=== PATIENT | female | born 1990 | race Caucasian/White ===

== ENCOUNTER → 2018-06-20 | Outpatient (CLI) | payer OTHER ==
[~2018-06-20] MED LIST: CRUTCH4 USE; Crutch1 EACH MISC; IBUP800 PO; Naprosyn500 MG PO; Norco 5-325 Ta1 EACH PO; Percocet 5-3251 EACH PO; Ultram50 MG PO; Zofran Odt4 MG SL
[2018-06-24 21:08] LABS: CHLAMYDIA TRACHOMATIS, NAA Negative (Negative); NEISSERIA GONORRHOEAE, NAA Negative (Negative)
== END ==
LOC: LAB SHORT 14:18 → LAB UCHC 14:18
PROVIDERS: Registered Nurse Community Health
DX: N76.0 Acute vaginitis (principal); N88.8 Other specified noninflammatory disorders of cervix uteri; N93.0 Postcoital and contact bleeding; N93.8 Other specified abnormal uterine and vaginal bleeding; Z30.49 Encounter for surveillance of other contraceptives
CPT/HCPCS: 87070; 87205; 87491; 87591

== ENCOUNTER → 2018-11-25 | Outpatient (CLI) | payer OTHER ==
[~2018-11-25] MED LIST changes: +CEFD300 PO; +PRED20 PO
== END | disposition home or self-care (01) ==
LOC: LAB EV 14:45 → LAB SHORT 14:45
DX: J03.90 Acute tonsillitis, unspecified (principal)
CPT/HCPCS: 87070

== ENCOUNTER → 2021-06-17 | Outpatient (CLI) | payer OTHER ==
[2021-06-17 16:57] LABS: Appearance, Urine Cloudy (Clear); Bilirubin, Urine Neg (Neg); Blood, Urine 3+ (Neg); Color, Urine Yellow (P-Yellow); Glucose Qualitative, Urine Neg (Neg); Ketones, Urine 2+ (Neg); Leukocyte Esterase, Urine 3+ (Neg); Nitrite, Urine Neg (Neg); Protein, Urine 2+ (Neg); Specific Gravity, Urine 1.025 (1.003-1.022); Urobilinogen, Urine NORM (Normal)
[2021-06-17 17:55] LABS: Amorphous Mod (0-Heavy); Bacteria Many /hpf; Mucus Light (0-Heavy); Squamous Epithelial Cells Mod /hpf (Few)
[2021-06-18 08:10] LABS: HBSAG SCREEN Negative (Negative)
[2021-06-18 09:10] LABS: HIV SCREEN 4TH GENERATION WRFX Non Reactive (Non Reactive)
== END ==
LOC: LAB 15:08 → LAB SHORT 15:08
PROVIDERS: Registered Nurse Community Health
DX: Z34.90 Encounter for supervision of normal pregnancy, unspecified, unspecified trimester (principal)
CPT/HCPCS: 80055; 81001; 84443; 87086; 87389

== ENCOUNTER → 2021-06-29 | Outpatient (CLI) | payer OTHER ==
[2021-07-01 15:10] LABS: HPV 16 Negative (Negative); HPV 18 Negative (Negative); HPV OTHER HR TYPES Negative (Negative)
== END ==
LOC: LAB 16:45 → LAB SHORT 16:45
PROVIDERS: Registered Nurse Community Health
DX: Z12.4 Encounter for screening for malignant neoplasm of cervix (principal); Z88.5 Allergy status to narcotic agent; Z91.040 Latex allergy status
CPT/HCPCS: 87624; G0123

== ENCOUNTER → 2021-06-29 | Outpatient (CLI) | payer OTHER | LOC: LAB 19:02 → LAB SHORT 19:02 | DX: Z34.90 Encounter for supervision of normal pregnancy, unspecified, unspecified trimester (principal) | CPT/HCPCS: 84702 ==

== ENCOUNTER → 2021-07-27 | Outpatient (CLI) | payer OTHER ==
[2021-07-29 05:09] LABS: CHLAMYDIA TRACHOMATIS, NAA Negative (Negative)
== END ==
LOC: LAB 11:49 → LAB SHORT 11:49
PROVIDERS: Registered Nurse Community Health
DX: Z34.90 Encounter for supervision of normal pregnancy, unspecified, unspecified trimester (principal)
CPT/HCPCS: 87491; 87591

== ENCOUNTER → 2021-10-19 | Outpatient (CLI) | payer OTHER ==
[2021-10-19 18:27] LABS: Hematocrit 37.6 % (33.0-51.0); Hemoglobin 12.8 g/dL (11.5-16.0)
== END ==
LOC: LAB SHORT 15:20
PROVIDERS: Registered Nurse Community Health
DX: Z34.90 Encounter for supervision of normal pregnancy, unspecified, unspecified trimester (principal)
CPT/HCPCS: 82950; 85014; 85018

== ENCOUNTER → 2021-12-21 | Outpatient (CLI) | payer OTHER ==
[~2021-12-21] MED LIST changes: +ACET500 PO; +AMOCLA875 PO; +DOCU100 PO; +IBU800 MG PO; +TOPI25 PO
== END ==
LOC: LAB SHORT 14:40
DX: Z34.93 Encounter for supervision of normal pregnancy, unspecified, third trimester (principal)
CPT/HCPCS: 87081; 87150

== ENCOUNTER 2022-01-15 15:48 | Inpatient (IN) | payer OTHER ==
[~2022-01-15] VITALS: Ht 175.3 cm; Wt 135.0 kg
[~2022-01-15 15:48] MED LIST changes: -ACET500 PO; -AMOCLA875 PO; -DOCU100 PO; -IBU800 MG PO; -TOPI25 PO
[2022-01-15] MEDS ORDERED: ACET500 PO (16:33)
[2022-01-15 17:00] LABS: BASOPHILS ABSOLUTE AUTO 0.06 K/mm3 (0.00-0.23); BASOPHILS PERCENT AUTO 0 % (0-2); EOSINOPHILS ABSOLUTE AUTO 0.11 K/mm3 (0.00-0.68); EOSINOPHILS PERCENT AUTO 1 % (0-6); Hematocrit 38.5 % (33.0-51.0); Hemoglobin 12.6 g/dL (11.5-16.0); IMMATURE GRAN ABSOLUTE AUTO 0.16 K/mm3 (0.00-0.10); IMMATURE GRAN PERCENT AUTO 1 % (0-1); LYMPHOCYTES ABSOLUTE AUTO 1.96 K/mm3 (0.84-5.20); LYMPHOCYTES PERCENT AUTO 11 % (21-46); MONOCYTES ABSOLUTE AUTO 1.26 K/mm3 (0.16-1.47); MONOCYTES PERCENT AUTO 7 % (4-13); Mean Corpuscular HGB Conc 32.7 g/dL (31.5-36.5); Mean Corpuscular Volume 92 fL (80-100); Mean Platelet Volume 9.6 fL (9.1-12.4); NEUTROPHILS ABSOLUTE AUTO 13.63 K/mm3 (1.96-9.15); NEUTROPHILS PERCENT AUTO 80 % (41-73); Platelet Count 272 K/mm3 (150-400); RDW Coefficient Variation 13.3 % (11.7-14.2); RDW Standard Deviation 44.1 fL (35.1-46.3); White Blood Cell Count 17.18 K/mm3 (4.00-11.30)
[2022-01-15 17:38] LABS: PCO2 Cord - Venous 49.3 mmHg (40-50); PO2 Cord - Venous 41.9 mmHg (28-32); pH Umbilical Cord - Venous 7.36 (7.26-7.35)
--- NOTE | 2022-01-15 17:48 | NUR ---
01/15/22 1748 Og Pisano INITIAL COUNT DONE BY GB AND SRC. EMERGENT WITH GEN ANESTHESIA. COUNT REVIEWED BY RAPHAEL WITH SRC. 1721 DELIVERY OF VIABLE MALE IN BREECH POSITION. CORD SEGMENT AND CORD BLOOD GIVEN TO RT AND FBP STAFF
[2022-01-15 20:31] LABS: BASOPHILS ABSOLUTE AUTO 0.09 K/mm3 (0.00-0.23); BASOPHILS PERCENT AUTO 0 % (0-2); EOSINOPHILS ABSOLUTE AUTO 0.03 K/mm3 (0.00-0.68); EOSINOPHILS PERCENT AUTO 0 % (0-6); Hematocrit 40.5 % (33.0-51.0); Hemoglobin 13.2 g/dL (11.5-16.0); IMMATURE GRAN ABSOLUTE AUTO 0.43 K/mm3 (0.00-0.10); IMMATURE GRAN PERCENT AUTO 1 % (0-1); LYMPHOCYTES ABSOLUTE AUTO 1.53 K/mm3 (0.84-5.20); LYMPHOCYTES PERCENT AUTO 5 % (21-46); MONOCYTES ABSOLUTE AUTO 1.27 K/mm3 (0.16-1.47); MONOCYTES PERCENT AUTO 4 % (4-13); Mean Corpuscular HGB 30.8 pg (26.0-34.0); Mean Corpuscular HGB Conc 32.6 g/dL (31.5-36.5); Mean Corpuscular Volume 94 fL (80-100); NEUTROPHILS ABSOLUTE AUTO 27.92 K/mm3 (1.96-9.15); NEUTROPHILS PERCENT AUTO 89 % (41-73); RDW Coefficient Variation 13.4 % (11.7-14.2); Red Blood Cell Count 4.29 M/mm3 (3.80-5.20); White Blood Cell Count 31.27 K/mm3 (4.00-11.30)
[2022-01-15 20:35] LABS: Mean Platelet Volume 9.9 fL (9.1-12.4); Platelet Count 267 K/mm3 (150-400)
[2022-01-16 04:09] LABS: BASOPHILS ABSOLUTE AUTO 0.06 K/mm3 (0.00-0.23); BASOPHILS PERCENT AUTO 0 % (0-2); EOSINOPHILS ABSOLUTE AUTO 0.02 K/mm3 (0.00-0.68); EOSINOPHILS PERCENT AUTO 0 % (0-6); Hematocrit 31.5 % (33.0-51.0); Hemoglobin 10.8 g/dL (11.5-16.0); IMMATURE GRAN ABSOLUTE AUTO 0.23 K/mm3 (0.00-0.10); IMMATURE GRAN PERCENT AUTO 1 % (0-1); LYMPHOCYTES ABSOLUTE AUTO 2.02 K/mm3 (0.84-5.20); LYMPHOCYTES PERCENT AUTO 9 % (21-46); MONOCYTES ABSOLUTE AUTO 1.29 K/mm3 (0.16-1.47); MONOCYTES PERCENT AUTO 6 % (4-13); Mean Corpuscular HGB 31.3 pg (26.0-34.0); Mean Corpuscular HGB Conc 34.3 g/dL (31.5-36.5); Mean Corpuscular Volume 91 fL (80-100); Mean Platelet Volume 9.7 fL (9.1-12.4); NEUTROPHILS ABSOLUTE AUTO 18.69 K/mm3 (1.96-9.15); NEUTROPHILS PERCENT AUTO 84 % (41-73); Platelet Count 262 K/mm3 (150-400); RDW Coefficient Variation 13.3 % (11.7-14.2); RDW Standard Deviation 43.7 fL (35.1-46.3); Red Blood Cell Count 3.45 M/mm3 (3.80-5.20); White Blood Cell Count 22.31 K/mm3 (4.00-11.30)
--- NOTE | 2022-01-16 04:40 | NUR ---
DR RIVERO CONTACTED TO REPORT PT'S HR IN THE 120'S, LABS, BLEEDING, FUNDAL CHECKS, UO DISCUSSED. WILL GIVE 500ML BOLUS.
[2022-01-16 08:55] LABS: BASOPHILS ABSOLUTE AUTO 0.05 K/mm3 (0.00-0.23); BASOPHILS PERCENT AUTO 0 % (0-2); EOSINOPHILS ABSOLUTE AUTO 0.03 K/mm3 (0.00-0.68); EOSINOPHILS PERCENT AUTO 0 % (0-6); Hematocrit 30.2 % (33.0-51.0); Hemoglobin 10.2 g/dL (11.5-16.0); IMMATURE GRAN ABSOLUTE AUTO 0.22 K/mm3 (0.00-0.10); IMMATURE GRAN PERCENT AUTO 1 % (0-1); LYMPHOCYTES ABSOLUTE AUTO 2.04 K/mm3 (0.84-5.20); LYMPHOCYTES PERCENT AUTO 11 % (21-46); MONOCYTES PERCENT AUTO 7 % (4-13); Mean Corpuscular HGB Conc 33.8 g/dL (31.5-36.5); Mean Corpuscular Volume 92 fL (80-100); Mean Platelet Volume 9.5 fL (9.1-12.4); NEUTROPHILS ABSOLUTE AUTO 14.72 K/mm3 (1.96-9.15); NEUTROPHILS PERCENT AUTO 80 % (41-73); Platelet Count 241 K/mm3 (150-400); RDW Coefficient Variation 13.3 % (11.7-14.2); RDW Standard Deviation 44.7 fL (35.1-46.3); Red Blood Cell Count 3.29 M/mm3 (3.80-5.20); White Blood Cell Count 18.36 K/mm3 (4.00-11.30)
--- NOTE | 2022-01-16 12:01 | NUR ---
lungs clear using incentive spirometer pericare done
--- NOTE | 2022-01-16 12:22 | NUR ---
[employer] ADVIS[employer] SERVICES ASSOCIATE D/C TOTAL 4.2 GIVEN THIS SHIFT VERIFIED WITH Anson SOUSA RN, PERCOCET GIVEN
--- NOTE | 2022-01-16 14:35 | NUR ---
CARHART HERE TO SEE PATIENT, BIOX WNL AND HEART RATE MANUAL 100 BPM
--- NOTE | 2022-01-16 17:24 | NUR ---
C/O INCREASE PAIN, LUNGS CLEAR, BIOX 94-95% INCISION SITE CLEAR, ORAL TEMP 99.3 WITH HR IN 120s PAIN MEDS GIVEN, SANDRA CARE DONE
[2022-01-16 19:56] LABS: BASOPHILS ABSOLUTE AUTO 0.03 K/mm3 (0.00-0.23); BASOPHILS PERCENT AUTO 0 % (0-2); EOSINOPHILS ABSOLUTE AUTO 0.03 K/mm3 (0.00-0.68); EOSINOPHILS PERCENT AUTO 0 % (0-6); Hematocrit 29.2 % (33.0-51.0); Hemoglobin 9.8 g/dL (11.5-16.0); IMMATURE GRAN PERCENT AUTO 1 % (0-1); LYMPHOCYTES ABSOLUTE AUTO 1.49 K/mm3 (0.84-5.20); LYMPHOCYTES PERCENT AUTO 8 % (21-46); MONOCYTES PERCENT AUTO 7 % (4-13); Mean Corpuscular HGB 31.2 pg (26.0-34.0); Mean Corpuscular HGB Conc 33.6 g/dL (31.5-36.5); Mean Corpuscular Volume 93 fL (80-100); Mean Platelet Volume 9.5 fL (9.1-12.4); NEUTROPHILS ABSOLUTE AUTO 16.14 K/mm3 (1.96-9.15); NEUTROPHILS PERCENT AUTO 84 % (41-73); Platelet Count 251 K/mm3 (150-400); RDW Coefficient Variation 13.5 % (11.7-14.2); RDW Standard Deviation 45.6 fL (35.1-46.3); Red Blood Cell Count 3.14 M/mm3 (3.80-5.20); White Blood Cell Count 19.19 K/mm3 (4.00-11.30)
[2022-01-16 20:14] LABS: Alanine Aminotransfer (ALT/SGP 16 U/L (12-78); Albumin/Globulin Ratio 0.5 (0.8-1.8); Alk Phos 87 U/L (50-136); Anion Gap 6 mmol/L (6-16); Aspartate Aminotrans (AST/SGOT 34 U/L (12-37); Bilirubin, Total 0.3 mg/dL (0.1-1.0); Blood Urea Nitrogen 5 mg/dL (8-24); Bun/Creatinine Ratio 8.9 (12.0-20.0); CO2, Blood 27 mmol/L (21-32); Calcium, Blood 8.9 mg/dL (8.5-10.1); Chloride, Blood 105 mmol/L (98-108); Creatinine, Blood 0.56 mg/dL (0.40-1.00); Glomerular Filtration Rate >60 (60-); Glucose, Blood 150 mg/dL (70-99); Potassium, Blood 3.8 mmol/L (3.5-5.5); Sodium, Blood 138 mmol/L (136-145)
[2022-01-16 20:32] LABS: C-Reactive Protein, High Sens. >190.000 mg/L (0.000-3.000)
[2022-01-17 04:59] LABS: BASOPHILS ABSOLUTE AUTO 0.03 K/mm3 (0.00-0.23); BASOPHILS PERCENT AUTO 0 % (0-2); EOSINOPHILS ABSOLUTE AUTO 0.08 K/mm3 (0.00-0.68); EOSINOPHILS PERCENT AUTO 1 % (0-6); Hematocrit 26.5 % (33.0-51.0); Hemoglobin 8.8 g/dL (11.5-16.0); IMMATURE GRAN ABSOLUTE AUTO 0.19 K/mm3 (0.00-0.10); IMMATURE GRAN PERCENT AUTO 1 % (0-1); LYMPHOCYTES ABSOLUTE AUTO 1.68 K/mm3 (0.84-5.20); LYMPHOCYTES PERCENT AUTO 11 % (21-46); MONOCYTES ABSOLUTE AUTO 1.14 K/mm3 (0.16-1.47); MONOCYTES PERCENT AUTO 7 % (4-13); Mean Corpuscular HGB Conc 33.2 g/dL (31.5-36.5); Mean Corpuscular Volume 93 fL (80-100); Mean Platelet Volume 9.2 fL (9.1-12.4); NEUTROPHILS ABSOLUTE AUTO 12.38 K/mm3 (1.96-9.15); NEUTROPHILS PERCENT AUTO 80 % (41-73); Platelet Count 223 K/mm3 (150-400); RDW Coefficient Variation 13.6 % (11.7-14.2); RDW Standard Deviation 46.5 fL (35.1-46.3); Red Blood Cell Count 2.84 M/mm3 (3.80-5.20)
[2022-01-17 05:47] LABS: Alanine Aminotransfer (ALT/SGP 14 U/L (12-78); Albumin, Blood 1.7 g/dL (3.4-5.0); Albumin/Globulin Ratio 0.4 (0.8-1.8); Alk Phos 80 U/L (50-136); Anion Gap 7 mmol/L (6-16); Aspartate Aminotrans (AST/SGOT 27 U/L (12-37); Bilirubin, Total 0.2 mg/dL (0.1-1.0); Blood Urea Nitrogen 7 mg/dL (8-24); Bun/Creatinine Ratio 10.1 (12.0-20.0); CO2, Blood 28 mmol/L (21-32); Calcium, Blood 8.4 mg/dL (8.5-10.1); Chloride, Blood 104 mmol/L (98-108); Creatinine, Blood 0.69 mg/dL (0.40-1.00); Glomerular Filtration Rate >60 (60-); Glucose, Blood 98 mg/dL (70-99); Sodium, Blood 139 mmol/L (136-145); Total Protein, Blood 5.7 g/dL (6.4-8.2)
[2022-01-17 05:52] LABS: C-Reactive Protein, High Sens. >190.000 mg/L (0.000-3.000)
--- NOTE | 2022-01-17 09:03 | NUR ---
DR VERDIN AT BEDSIDE. STATES TO STOP GENTAMYCIN, 13CC INFUSED. STATES TO MAKE IT Q 24 HOURS. WILL CHANGE ORDER.
[2022-01-17 12:27] LABS: BASOPHILS ABSOLUTE AUTO 0.02 K/mm3 (0.00-0.23); BASOPHILS PERCENT AUTO 0 % (0-2); EOSINOPHILS ABSOLUTE AUTO 0.06 K/mm3 (0.00-0.68); EOSINOPHILS PERCENT AUTO 0 % (0-6); Hematocrit 27.5 % (33.0-51.0); IMMATURE GRAN ABSOLUTE AUTO 0.22 K/mm3 (0.00-0.10); IMMATURE GRAN PERCENT AUTO 1 % (0-1); LYMPHOCYTES ABSOLUTE AUTO 0.83 K/mm3 (0.84-5.20); LYMPHOCYTES PERCENT AUTO 5 % (21-46); MONOCYTES ABSOLUTE AUTO 0.81 K/mm3 (0.16-1.47); MONOCYTES PERCENT AUTO 5 % (4-13); Mean Corpuscular HGB 31.1 pg (26.0-34.0); Mean Corpuscular HGB Conc 32.7 g/dL (31.5-36.5); Mean Corpuscular Volume 95 fL (80-100); Mean Platelet Volume 9.4 fL (9.1-12.4); NEUTROPHILS ABSOLUTE AUTO 13.36 K/mm3 (1.96-9.15); NEUTROPHILS PERCENT AUTO 87 % (41-73); Platelet Count 240 K/mm3 (150-400); RDW Coefficient Variation 13.5 % (11.7-14.2); RDW Standard Deviation 46.9 fL (35.1-46.3); Red Blood Cell Count 2.89 M/mm3 (3.80-5.20)
[2022-01-17 12:49] LABS: Alanine Aminotransfer (ALT/SGP 14 U/L (12-78); Albumin, Blood 1.8 g/dL (3.4-5.0); Albumin/Globulin Ratio 0.4 (0.8-1.8); Alk Phos 85 U/L (50-136); Anion Gap 6 mmol/L (6-16); Aspartate Aminotrans (AST/SGOT 29 U/L (12-37); Bilirubin, Total 0.2 mg/dL (0.1-1.0); Blood Urea Nitrogen 7 mg/dL (8-24); Bun/Creatinine Ratio 9.6 (12.0-20.0); CO2, Blood 27 mmol/L (21-32); Calcium, Blood 8.6 mg/dL (8.5-10.1); Chloride, Blood 107 mmol/L (98-108); Creatinine, Blood 0.73 mg/dL (0.40-1.00); Globulin, Blood 4.1 g/dL (2.2-4.0); Glomerular Filtration Rate >60 (60-); Glucose, Blood 105 mg/dL (70-99); Potassium, Blood 4.1 mmol/L (3.5-5.5); Sodium, Blood 140 mmol/L (136-145); Total Protein, Blood 5.9 g/dL (6.4-8.2)
[2022-01-18 05:43] LABS: BASOPHILS ABSOLUTE AUTO 0.04 K/mm3 (0.00-0.23); BASOPHILS PERCENT AUTO 0 % (0-2); EOSINOPHILS ABSOLUTE AUTO 0.21 K/mm3 (0.00-0.68); EOSINOPHILS PERCENT AUTO 2 % (0-6); Hematocrit 24.4 % (33.0-51.0); Hemoglobin 7.8 g/dL (11.5-16.0); IMMATURE GRAN ABSOLUTE AUTO 0.23 K/mm3 (0.00-0.10); IMMATURE GRAN PERCENT AUTO 2 % (0-1); LYMPHOCYTES ABSOLUTE AUTO 1.78 K/mm3 (0.84-5.20); LYMPHOCYTES PERCENT AUTO 14 % (21-46); MONOCYTES ABSOLUTE AUTO 0.98 K/mm3 (0.16-1.47); MONOCYTES PERCENT AUTO 8 % (4-13); Mean Corpuscular HGB 30.2 pg (26.0-34.0); Mean Corpuscular Volume 95 fL (80-100); Mean Platelet Volume 9.4 fL (9.1-12.4); NEUTROPHILS ABSOLUTE AUTO 9.83 K/mm3 (1.96-9.15); NEUTROPHILS PERCENT AUTO 75 % (41-73); Platelet Count 260 K/mm3 (150-400); RDW Coefficient Variation 13.7 % (11.7-14.2); RDW Standard Deviation 46.9 fL (35.1-46.3); Red Blood Cell Count 2.58 M/mm3 (3.80-5.20); White Blood Cell Count 13.07 K/mm3 (4.00-11.30)
[2022-01-18 06:11] LABS: Alanine Aminotransfer (ALT/SGP 13 U/L (12-78); Albumin, Blood 1.7 g/dL (3.4-5.0); Albumin/Globulin Ratio 0.4 (0.8-1.8); Alk Phos 81 U/L (50-136); Anion Gap 7 mmol/L (6-16); Aspartate Aminotrans (AST/SGOT 26 U/L (12-37); Bilirubin, Total 0.2 mg/dL (0.1-1.0); Blood Urea Nitrogen 8 mg/dL (8-24); Bun/Creatinine Ratio 11.6 (12.0-20.0); CO2, Blood 27 mmol/L (21-32); Calcium, Blood 8.3 mg/dL (8.5-10.1); Chloride, Blood 108 mmol/L (98-108); Creatinine, Blood 0.69 mg/dL (0.40-1.00); Free Thyroxine 1.52 ng/dL (0.70-1.60); Globulin, Blood 3.9 g/dL (2.2-4.0); Glomerular Filtration Rate >60 (60-); Glucose, Blood 104 mg/dL (70-99); Potassium, Blood 3.6 mmol/L (3.5-5.5); Sodium, Blood 142 mmol/L (136-145); Total Protein, Blood 5.6 g/dL (6.4-8.2)
[2022-01-18 06:15] LABS: C-REACTIVE PROTEIN, EXT RANGE >19.000 mg/dL (0.000-0.300)
[2022-01-18 10:26] LABS: Hematocrit 23.9 % (33.0-51.0); Hemoglobin 7.7 g/dL (11.5-16.0)
[2022-01-18 10:56] LABS: Hemoglobin 7.8 g/dL (11.5-16.0); Mean Corpuscular HGB 31.1 pg (26.0-34.0); Mean Corpuscular HGB Conc 32.5 g/dL (31.5-36.5); Mean Corpuscular Volume 96 fL (80-100); Mean Platelet Volume 9.4 fL (9.1-12.4); Platelet Count 276 K/mm3 (150-400); RDW Coefficient Variation 13.6 % (11.7-14.2); RDW Standard Deviation 47.9 fL (35.1-46.3); Red Blood Cell Count 2.51 M/mm3 (3.80-5.20); White Blood Cell Count 11.07 K/mm3 (4.00-11.30)
[2022-01-18 11:03] LABS: International Normalized Ratio 0.98; Prothrombin Time Results 10.3 Sec (9.7-11.5)
[2022-01-18 11:33] LABS: RETIC HGB EQUIVALENT 31.7 pg (28.20-36.60); RETICULOCYTE ABSOLUTE 0.0747 M/mm3 (0.0200-0.1100); RETICULOCYTE COUNT PERCENT 2.81 % (0.50-2.50)
[2022-01-18 11:45] LABS: Bilirubin, Direct <0.1 mg/dL (0.0-0.3); Bilirubin, Indirect Unable to Calculate mg/dL (0.1-0.7); Bilirubin, Total 0.2 mg/dL (0.1-1.0); Lactate Dehydrogenase (Ld),Bld 339 U/L (100-240)
[2022-01-18 11:51] LABS: BAND PERCENT MAN 1 % (0-8); BASOPHILS PERCENT MAN 0 % (0-2); EOSINOPHILS ABSOLUTE MAN 0.11 K/mm3 (0.00-0.68); EOSINOPHILS PERCENT MAN 1 % (0-6); LYMPHOCYTES ABSOLUTE MAN 1.21 K/mm3 (0.84-5.20); LYMPHOCYTES PERCENT MAN 11 % (21-46); MONOCYTES ABSOLUTE MAN 0.44 K/mm3 (0.16-1.47); MONOCYTES PERCENT MAN 4 % (4-13); MYELOCYTE ABSOLUTE MAN 0.11 K/mm3 (0.00-0.00); MYELOCYTE PERCENT MAN 1 % (0-0); NEUTROPHILS ABSOLUTE MAN 9.18 K/mm3 (1.96-9.15); SEG NEUTROPHILS PERCENT MAN 82 % (41-73); TOTAL CELLS COUNTED 100
[2022-01-19 05:57] LABS: BASOPHILS ABSOLUTE AUTO 0.03 K/mm3 (0.00-0.23); BASOPHILS PERCENT AUTO 0 % (0-2); EOSINOPHILS ABSOLUTE AUTO 0.23 K/mm3 (0.00-0.68); EOSINOPHILS PERCENT AUTO 2 % (0-6); Hematocrit 25.5 % (33.0-51.0); Hemoglobin 8.1 g/dL (11.5-16.0); IMMATURE GRAN ABSOLUTE AUTO 0.26 K/mm3 (0.00-0.10); IMMATURE GRAN PERCENT AUTO 3 % (0-1); LYMPHOCYTES ABSOLUTE AUTO 1.71 K/mm3 (0.84-5.20); LYMPHOCYTES PERCENT AUTO 18 % (21-46); MONOCYTES ABSOLUTE AUTO 0.71 K/mm3 (0.16-1.47); MONOCYTES PERCENT AUTO 7 % (4-13); Mean Corpuscular HGB 30.6 pg (26.0-34.0); Mean Corpuscular HGB Conc 31.8 g/dL (31.5-36.5); Mean Corpuscular Volume 96 fL (80-100); Mean Platelet Volume 9.1 fL (9.1-12.4); NEUTROPHILS ABSOLUTE AUTO 6.66 K/mm3 (1.96-9.15); NEUTROPHILS PERCENT AUTO 69 % (41-73); NRBC ABSOLUTE 0.03 K/mm3 (0.00-0.02); NRBC Auto 0.3 /100 WBC (0.0-0.2); Platelet Count 316 K/mm3 (150-400); RDW Coefficient Variation 13.6 % (11.7-14.2); RDW Standard Deviation 47.7 fL (35.1-46.3); Red Blood Cell Count 2.65 M/mm3 (3.80-5.20)
[2022-01-19 06:20] LABS: Alanine Aminotransfer (ALT/SGP 16 U/L (12-78); Albumin, Blood 1.8 g/dL (3.4-5.0); Albumin/Globulin Ratio 0.4 (0.8-1.8); Alk Phos 80 U/L (50-136); Anion Gap 9 mmol/L (6-16); Aspartate Aminotrans (AST/SGOT 32 U/L (12-37); Bilirubin, Total 0.2 mg/dL (0.1-1.0); Blood Urea Nitrogen 8 mg/dL (8-24); Bun/Creatinine Ratio 11.3 (12.0-20.0); CO2, Blood 29 mmol/L (21-32); Calcium, Blood 8.7 mg/dL (8.5-10.1); Chloride, Blood 105 mmol/L (98-108); Creatinine, Blood 0.71 mg/dL (0.40-1.00); Globulin, Blood 4.2 g/dL (2.2-4.0); Glomerular Filtration Rate >60 (60-); Glucose, Blood 93 mg/dL (70-99); Potassium, Blood 3.9 mmol/L (3.5-5.5); Sodium, Blood 143 mmol/L (136-145)
--- NOTE | 2022-01-19 07:40 | NUR ---
pt is feeding baby. her biox is not 83-84%, she is moving her finger around. baby spit up in her arms, the biox is from artifact of pt moving her finger. biox off pt, pt is on tele, the tele monitor will let us know if she is tachycardic, her biox is stable. pt denies feeling dizzy or light headed when up moving in room, pt reports did have a small bowel movement this morning, her boyfriend helped her get up. she is hoping she gets to go home today
--- NOTE | 2022-01-19 09:32 | NUR ---
pt reports doing well, all meds given, augmentin just here from pharmacy. pt is doing all baby care, hoping she gets to go home today. dr wright electronically sent pt meds to pharmacy for going home.
[2022-01-19] MEDS ORDERED: DOCU100 PO (09:33)
[2022-01-19] MEDS ORDERED: TOPI25 PO (09:34)
[2022-01-19] MEDS ORDERED: IBU800 MG PO (09:34)
[2022-01-19] MEDS ORDERED: AMOCLA875 PO (09:35)
[2022-01-19] MEDS ORDERED: Percocet 5-3251 EACH PO (09:35)
[2022-01-19 10:38] LABS: Hematocrit 25.9 % (33.0-51.0); Hemoglobin 8.2 g/dL (11.5-16.0)
--- NOTE | 2022-01-19 11:48 | NUR ---
DC INSTRUCTIONS GONE OVER WTIH PT, VERBALIZED UNDERSTANDING, DENIES ANY QUESTIONS, FAMILY PICKING UP MEDICATIONS PT IS HAPPY TO BE ABLE TO PUT HER OWN CLOTHS ON.
--- NOTE | 2022-01-19 13:30 | NUR ---
DC HOME, AMBULATE OUT, PT CALLED THE OFFICE, SCRIPTS HADNT BEEN SENT YET, SHE REPORTS THE OFFICE IS SENDING THEM NOW. TO [facility]. PT HAS APPT TO RETURN TOMORROW FOR PPFU WITH BABY. ENCOURAGED TO CALL DR BHATTI WITH ANY QUESTIONS
== END 2022-01-19 13:30 | disposition home or self-care (01) | DRG 786 ==
LOC: BC 15:48 → OBS 15:48 → BC 16:21
PROVIDERS: Family Medicine; Nurse Practitioner Obstetrics & Gynecology; ADMIT Obstetrics & Gynecology
PROC: 10D00Z1 Extraction of Products of Conception, Low, Open Approach (ICD-10-PCS; principal; 2022-01-15 17:00)
DX: O32.1XX0 Maternal care for breech presentation, not applicable or unspecified (principal); O99.42 Diseases of the circulatory system complicating childbirth; D62 Acute posthemorrhagic anemia; I47.1 Supraventricular tachycardia; K91.89 Other postprocedural complications and disorders of digestive system; K56.7 Ileus, unspecified; O72.1 Other immediate postpartum hemorrhage; O86.12 Endometritis following delivery; O99.354 Diseases of the nervous system complicating childbirth; Z3A.39 39 weeks gestation of pregnancy; Z37.0 Single live birth; O99.214 Obesity complicating childbirth; E66.9 Obesity, unspecified; O75.4 Other complications of obstetric surgery and procedures; O99.62 Diseases of the digestive system complicating childbirth; O99.52 Diseases of the respiratory system complicating childbirth; K59.09 Other constipation; J45.990 Exercise induced bronchospasm; O99.02 Anemia complicating childbirth; G47.33 Obstructive sleep apnea (adult) (pediatric); O43.123 Velamentous insertion of umbilical cord, third trimester
CPT/HCPCS: 36415; 59025; 71045; 74018; 80053; 82247; 82248; 82803; 83010; 83605; 83615; 84145; 84439; 84443; 85007; 85014; 85018; 85025; 85027; 85045; 85384; 85460; 85610; 85730; 86140; 86141; 86850; 86880; 86900; 86901; 87040; 88307; 93005; 93010; 94640; 94664; 94760; 96372; A9270; C1751; J0290; J0690; J1170; J1580; J1885; J2405; J2550; J2765; J2791; J2916; J3010; J7050; J7120

== ENCOUNTER → 2024-10-02 | Outpatient (CLI) | payer OTHER ==
[~2024-10-02] MED LIST changes: +ACET500 PO; +AMOCLA875 PO; +DOCU100 PO; +IBU800 MG PO; +TOPI25 PO
[2024-10-07 21:25] LABS: APTIMA MEDIA TYPE Urine; C. TRACHOMATIS BY TMA Negative (Negative); N. GONORRHOEAE BY TMA Negative (Negative); SPECIMEN SOURCE Urine; T. VAGINALIS BY TMA Negative (Negative)
== END | disposition home or self-care (01) ==
LOC: LAB 16:39 → LAB SHORT 16:39
PROVIDERS: Registered Nurse Community Health
DX: Z32.01 Encounter for pregnancy test, result positive (principal)
CPT/HCPCS: 87491; 87591; 87661

== ENCOUNTER → 2024-11-07 | Outpatient (CLI) | payer OTHER ==
[2024-11-07 17:07] LABS: Source, Urine Clean Catch
[2024-11-07 19:08] LABS: BASOPHILS ABSOLUTE AUTO 0.04 K/mm3 (0.00-0.23); BASOPHILS PERCENT AUTO 0 % (0-2); EOSINOPHILS ABSOLUTE AUTO 0.13 K/mm3 (0.00-0.68); EOSINOPHILS PERCENT AUTO 1 % (0-6); Hematocrit 42.3 % (33.0-51.0); Hemoglobin 14.3 g/dL (11.5-16.0); IMMATURE GRAN ABSOLUTE AUTO 0.04 K/mm3 (0.00-0.10); IMMATURE GRAN PERCENT AUTO 0 % (0-1); LYMPHOCYTES ABSOLUTE AUTO 2.04 K/mm3 (0.84-5.20); LYMPHOCYTES PERCENT AUTO 23 % (21-46); MONOCYTES ABSOLUTE AUTO 0.68 K/mm3 (0.16-1.47); MONOCYTES PERCENT AUTO 8 % (4-13); Mean Corpuscular HGB 31.1 pg (26.0-34.0); Mean Corpuscular HGB Conc 33.8 g/dL (31.5-36.5); Mean Corpuscular Volume 92 fL (80-100); Mean Platelet Volume 10.8 fL (9.1-12.4); NEUTROPHILS ABSOLUTE AUTO 6.04 K/mm3 (1.96-9.15); NEUTROPHILS PERCENT AUTO 68 % (41-73); Platelet Count 262 K/mm3 (150-400); RDW Coefficient Variation 12.5 % (11.7-14.2); RDW Standard Deviation 41.9 fL (35.1-46.3); White Blood Cell Count 8.97 K/mm3 (4.00-11.30)
[2024-11-07 19:16] LABS: Appearance, Urine Hazy (Clear); Bilirubin, Urine Neg (Neg); Blood, Urine 1+ (Neg); Color, Urine Yellow (P-Yellow); Glucose Qualitative, Urine Neg (Neg); Ketones, Urine Neg (Neg); Leukocyte Esterase, Urine 3+ (Neg); Nitrite, Urine Neg (Neg); Protein, Urine Neg (Neg); Urobilinogen, Urine NORM (Normal)
[2024-11-07 19:42] LABS: White Blood Cells, Urine 25-50 /hpf (0-5)
[2024-11-07 19:43] LABS: Bacteria Many /hpf; Mucus Light (0-Heavy); Red Blood Cells, Urine 0-2 /hpf (0-2); Squamous Epithelial Cells Many /hpf (Few)
[2024-11-10 14:50] LABS: HEPATITIS B SURFACE ANTIGEN Negative (Negative)
[2024-11-10 15:38] LABS: HIV 1,2 COMBO ANTIGEN/ANTIBODY Negative (Negative)
[2024-11-10 16:02] LABS: HEPATITIS C AB CIA INTERP Negative (Negative); HEPATITIS C ANTIBODY CIA INDEX 0.13 IV
== END | disposition home or self-care (01) ==
LOC: LAB 17:03 → LAB SHORT 17:03
PROVIDERS: Registered Nurse Community Health
DX: Z34.91 Encounter for supervision of normal pregnancy, unspecified, first trimester (principal)
CPT/HCPCS: 81001; 83036; 84443; 86803; 87086; 87340; 87389

== ENCOUNTER → 2024-11-17 | Outpatient (CLI) | payer OTHER ==
[2024-11-17 21:12] LABS: Chlamydia Trachomatis Urine NOT DETECTED (NOT DETECT); Neisseria Gonorrhoea Urine NOT DETECTED (NOT DETECT)
== END | disposition home or self-care (01) ==
LOC: LAB 18:43 → LAB SHORT 18:43
PROVIDERS: Registered Nurse Community Health
DX: Z34.91 Encounter for supervision of normal pregnancy, unspecified, first trimester (principal)
CPT/HCPCS: 87491; 87591

== ENCOUNTER → 2025-03-12 | Outpatient (CLI) | payer OTHER ==
[2025-03-12 14:53] LABS: Hematocrit 37.4 % (33.0-51.0); Hemoglobin 12.6 g/dL (11.5-16.0)
== END ==
LOC: LAB SHORT 13:19 → LAB 13:19
PROVIDERS: Registered Nurse Community Health
DX: Z34.83 Encounter for supervision of other normal pregnancy, third trimester (principal)
CPT/HCPCS: 82950; 85014; 85018

== ENCOUNTER → 2025-04-28 | Outpatient (CLI) | payer OTHER | END | disposition home or self-care (01) | LOC: LAB SHORT 15:19 → LAB 15:19 | DX: N39.0 Urinary tract infection, site not specified (principal); R30.0 Dysuria | CPT/HCPCS: 87086 ==

== ENCOUNTER 2025-06-01 06:59 | Inpatient (IN) | payer OTHER ==
[~2025-06-01] VITALS: Ht 175.3 cm; Wt 140.4 kg
[2025-06-01] VITALS (12 sets, daily range): BP systolic 123–181; BP diastolic 65–89
[2025-06-01] MEDS ORDERED: Carboprost Tromethamine 250 MCG/ML 1ML Amp IM PRN (07:15)
[2025-06-01] MEDS ORDERED: Methylergonovine Maleate 0.2MG / ML 1ML Amp IM PRN ×2 (07:15→20:40)
[2025-06-01] MEDS ORDERED: OXYTOCIN/RINGER'S LACTATE 500 ML IV PRN (07:15)
[2025-06-01] MEDS ORDERED: Oxytocin 10 Unit / ML Vial IM PRN (07:15)
[2025-06-01] MEDS ORDERED: Ondansetron HCl 2 MG / ML 2ML Vial IV PRN (07:15)
[2025-06-01] MEDS ORDERED: OXYTOCIN/RINGER'S LACTATE 500 ML IV SCH ×2 (07:30→19:40)
[2025-06-01] MEDS ORDERED: Tranexamic Acid 100 ML IV SCH (07:30)
[2025-06-01 07:34] LABS: BASOPHILS ABSOLUTE AUTO 0.03 K/mm3 (0.00-0.23); BASOPHILS PERCENT AUTO 0 % (0-2); EOSINOPHILS ABSOLUTE AUTO 0.14 K/mm3 (0.00-0.68); EOSINOPHILS PERCENT AUTO 1 % (0-6); Hematocrit 38.2 % (33.0-51.0); Hemoglobin 13.1 g/dL (11.5-16.0); IMMATURE GRAN ABSOLUTE AUTO 0.07 K/mm3 (0.00-0.10); IMMATURE GRAN PERCENT AUTO 1 % (0-1); LYMPHOCYTES ABSOLUTE AUTO 2.00 K/mm3 (0.84-5.20); LYMPHOCYTES PERCENT AUTO 16 % (21-46); MONOCYTES ABSOLUTE AUTO 0.95 K/mm3 (0.16-1.47); MONOCYTES PERCENT AUTO 8 % (4-13); Mean Corpuscular HGB Conc 34.3 g/dL (31.5-36.5); Mean Corpuscular Volume 91 fL (80-100); NEUTROPHILS ABSOLUTE AUTO 9.01 K/mm3 (1.96-9.15); NEUTROPHILS PERCENT AUTO 74 % (41-73); NRBC ABSOLUTE 0.00 K/mm3 (0.00-0.02); NRBC Auto 0.0 /100 WBC (0.0-0.2); Platelet Count 182 K/mm3 (150-400); RDW Coefficient Variation 13.2 % (11.7-14.2); RDW Standard Deviation 44.4 fL (35.1-46.3)
[2025-06-01] MEDS ORDERED: PRENATAL TABLE1 EAC2 PO (07:40)
[2025-06-01 07:59] LABS: Alanine Aminotransfer (ALT/SGP 16.0 U/L (12-78); Albumin, Blood 2.7 g/dL (3.4-5.0); Albumin/Globulin Ratio 0.6 (0.8-1.8); Anion Gap 9.0 mmol/L (3-11); Aspartate Aminotrans (AST/SGOT 17.0 U/L (12-37); Bilirubin, Total 0.2 mg/dL (0.1-1.0); Blood Urea Nitrogen 9.0 mg/dL (8-24); CO2, Blood 24.0 mmol/L (21-32); Calcium, Blood 9.3 mg/dL (8.5-10.1); Chloride, Blood 105.0 mmol/L (98-108); Creatinine, Blood 0.69 mg/dL (0.40-1.00); Globulin, Blood 4.4 g/dL (2.2-4.0); Glucose, Blood 113.0 mg/dL (70-99); Potassium, Blood 3.9 mmol/L (3.5-5.5); Sodium, Blood 134.0 mmol/L (136-145); Total Protein, Blood 7.1 g/dL (6.4-8.2)
[2025-06-01] MEDS ORDERED: Acetaminophen/Codeine 300-30 mg PO PRN (19:35)
[2025-06-01] MEDS ORDERED: OxyCODONE 5 mg/Acetamin 325 mg TABLET PO PRN (19:35)
[2025-06-01] MEDS ORDERED: Oxytocin 10 Unit / ML Vial IM ONE (19:40)
[2025-06-01] MEDS ORDERED: Ketorolac Tromethamine 30mg Vial IV PRN (19:40)
[2025-06-01] MEDS ORDERED: Benzocaine Topical Anesthetic Spray 60GM TOP PRN (19:40)
[2025-06-01] MEDS ORDERED: Witch Hazel/Glycerin PADS TOP PRN (19:45)
[2025-06-01] MEDS ORDERED: Rho(D) Immune Globulin 300 MCG / SYR IM ONE (19:45)
[2025-06-02 01:09] VITALS: BP 116/66
[2025-06-02 04:42] VITALS: BP 121/72
--- NOTE | 2025-06-02 06:15 | NUR ---
Assumed care at 0300 due to a staffing adjustment. Mother resting in bed at this time, fed due by 0330 per previous nurse report. Mother is an experienced parent and meeting newborns needs.
[2025-06-02 07:24] VITALS: BP 132/71
[2025-06-02 08:40] LABS: BASOPHILS ABSOLUTE AUTO 0.02 K/mm3 (0.00-0.23); BASOPHILS PERCENT AUTO 0 % (0-2); EOSINOPHILS ABSOLUTE AUTO 0.06 K/mm3 (0.00-0.68); EOSINOPHILS PERCENT AUTO 0 % (0-6); Hematocrit 32.4 % (33.0-51.0); Hemoglobin 11.0 g/dL (11.5-16.0); IMMATURE GRAN ABSOLUTE AUTO 0.09 K/mm3 (0.00-0.10); IMMATURE GRAN PERCENT AUTO 1 % (0-1); LYMPHOCYTES ABSOLUTE AUTO 1.79 K/mm3 (0.84-5.20); LYMPHOCYTES PERCENT AUTO 13 % (21-46); MONOCYTES ABSOLUTE AUTO 0.87 K/mm3 (0.16-1.47); MONOCYTES PERCENT AUTO 6 % (4-13); Mean Corpuscular HGB Conc 34.0 g/dL (31.5-36.5); Mean Corpuscular Volume 92 fL (80-100); NEUTROPHILS ABSOLUTE AUTO 11.29 K/mm3 (1.96-9.15); NEUTROPHILS PERCENT AUTO 80 % (41-73); NRBC ABSOLUTE 0.00 K/mm3 (0.00-0.02); NRBC Auto 0.0 /100 WBC (0.0-0.2); Platelet Count 170 K/mm3 (150-400); RDW Coefficient Variation 13.2 % (11.7-14.2); RDW Standard Deviation 44.1 fL (35.1-46.3)
[2025-06-02] MEDS ORDERED: Prenatal Vit/FE Fumarate/FA 1 Tab PO SCH (09:00)
[2025-06-02] MEDS ORDERED: Rho(D) Immune Globulin 300 MCG / SYR IV ONE (11:00)
[2025-06-02 11:06] VITALS: BP 115/63
[2025-06-02 17:09] VITALS: BP 124/67
[2025-06-02 19:06] VITALS: BP 128/73
--- NOTE | 2025-06-02 20:25 | NUR ---
Assumed care at change of shift, awaiting discharge pending test results. Assessment WNL, HRR, LCTA, denies TESFAYE or vision changes, denies leg pain, reports bleeding WNL. Matched bands and signed for release at 2019 awaiting call that family is ready to be walked to car.
== END 2025-06-02 20:30 | disposition home or self-care (01) | DRG 807 ==
LOC: OBS 06:59 → BC 07:01 → OBS 07:12 → BC 07:13
PROVIDERS: ADMIT Registered Nurse Community Health
PROC: 10E0XZZ Delivery of Products of Conception, External Approach (ICD-10-PCS; principal; 2025-06-02)
PROC: 0HQ9XZZ Repair Perineum Skin, External Approach (ICD-10-PCS; 2025-06-02)
DX: O70.0 First degree perineal laceration during delivery (principal); Z37.0 Single live birth; Z3A.39 39 weeks gestation of pregnancy
CPT/HCPCS: 36415; 80053; 85025; 85460; 86850; 86900; 86901; 86923; A9270; J1885; J2405; J2590; J2791; J7120